=== PATIENT | female | born 1940 | race Caucasian/White ===

== ENCOUNTER 2021-05-19 20:30 | Inpatient (IN) ==
[2021-05-19] MEDS ORDERED: methylPREDNISolone 125 MG/2 ML VIAL IVP ONE (20:40)
[2021-05-19] MEDS ORDERED: Ipratropium/Albuterol Neb 3 ML IH ONE (20:40)
[2021-05-19 21:29] LABS: Basophils # 0.1 K/mcL (0.0-0.2); Basophils % 0.5 %; Eosinophils # 0.4 K/mcL (0.0-0.6); Eosinophils % 3.3 %; Hematocrit 33.8 % (35.3-44.9); Hemoglobin 11.4 g/dL (11.5-15.4); Immature Granulocytes % 1.1 % (0-4); Lymphocytes # 2.5 K/mcL (0.6-4.6); Lymphocytes % 20.4 %; Mean Corpuscular HGB Conc 33.7 g/dL (31.6-35.5); Mean Corpuscular Hemoglobin 29.5 pg (28.0-33.3); Mean Corpuscular Volume 87.6 fL (83.0-100.0); Mean Platelet Volume 10.7 fL (9.4-12.4); Monocytes # 1.1 K/mcL (0.0-1.3); Monocytes % 8.5 %; Neutrophils # 8.2 K/mcL (1.6-8.9); Platelet Count 312 K/mcL (140-400); Red Blood Count 3.86 M/mcL (3.82-4.97); Red Cell Distribution Width 14.1 % (11.5-14.5); Segmented Neutrophils % 66.2 %; White Blood Count 12.4 K/mcL (4.3-11.1)
[2021-05-19 21:37] LABS: INR 1.5; Prothrombin Time 16.8 Seconds (9.4-12.1)
[2021-05-19 21:39] LABS: Activated Partial Thrombo Time 36.6 Seconds (26.0-36.0)
[2021-05-19 21:41] LABS: Bilirubin,Urine Negative (Negative); Blood,Urine Large (Negative); Clarity,Urine Clear (Clear); Color,Urine Light-Yellow (Yellow); Glucose,Urine (UA) Normal (Normal); Ketones,Urine Negative (Negative); Leukocyte Esterase,Urine Negative (Negative); Mucus,Urine Few per lpf (None-Few); Nitrite,Urine Negative (Negative); Protein,Urine Negative (Neg-Trace); RBC,Urine TNTC per hpf (0-3); Specific Gravity,Urine 1.011 (1.010-1.025); Squamous Epithelial Cell,Urine Few per hpf (None-Few); Urobilinogen,Urine Normal (Normal)
[2021-05-19 21:52] LABS: BUN/Creatinine Ratio 15 (6-26); Blood Urea Nitrogen 10 mg/dL (8-23); Calcium 8.2 mg/dL (8.6-10.3); Carbon Dioxide 20 mEq/L (23-29); Chloride 84 mEq/L (98-107); Glucose 96 mg/dL (70-105); Osmolality,Calculated 237 (280-300); Potassium 3.8 mEq/L (3.5-5.1); Sodium 114 mEq/L (136-145); Troponin I < 0.03 ng/mL (< 0.04); eGFR For African Americans > 60 (> 60); eGFR For Non-African Americans > 60 (> 60)
[2021-05-19] MEDS ORDERED: Furosemide 20 MG/2 ML VIAL IVP ONE (22:16)
[2021-05-19] MEDS ORDERED: DilTIAZem 50 MG/50 ML IV.SOLN IVC SCH (22:45)
[2021-05-20 00:12] LABS: BUN/Creatinine Ratio 16 (6-26); Blood Urea Nitrogen 10 mg/dL (8-23); Calcium 8.3 mg/dL (8.6-10.3); Carbon Dioxide 19 mEq/L (23-29); Chloride 86 mEq/L (98-107); Glucose 105 mg/dL (70-105); Osmolality,Calculated 239 (280-300); Potassium 3.7 mEq/L (3.5-5.1); Sodium 115 mEq/L (136-145); eGFR For African Americans > 60 (> 60); eGFR For Non-African Americans > 60 (> 60)
[2021-05-20] MEDS ORDERED: Naloxone 0.4 MG/ML INJ IVP PRN (00:32)
[2021-05-20] MEDS ORDERED: Amiodarone Premix 360 MG/200 ML BAG IVC ONE (00:34)
[2021-05-20] MEDS ORDERED: Amiodarone Premix 150 MG/100 ML BAG IVPB ONE (00:34)
[2021-05-20] MEDS ORDERED: Perflutren Lipid Microsphere 1.3 ML in 0.9 % Sodium Chloride 8.7 ML IVP PRN (00:47)
[2021-05-20] MEDS: Apixaban 5 MG TABLET PO SCH ×3 (01:51→20:13)
[2021-05-20 03:53] LABS: Basophils % 0.3 %; Eosinophils # 0.1 K/mcL (0.0-0.6); Eosinophils % 0.4 %; Hematocrit 33.8 % (35.3-44.9); Hemoglobin 11.9 g/dL (11.5-15.4); Immature Granulocytes % 1.4 % (0-4); Lymphocytes # 1.3 K/mcL (0.6-4.6); Lymphocytes % 11.4 %; Mean Corpuscular HGB Conc 35.2 g/dL (31.6-35.5); Mean Corpuscular Hemoglobin 30.1 pg (28.0-33.3); Mean Corpuscular Volume 85.6 fL (83.0-100.0); Mean Platelet Volume 11.3 fL (9.4-12.4); Monocytes # 0.2 K/mcL (0.0-1.3); Neutrophils # 9.7 K/mcL (1.6-8.9); Platelet Count 287 K/mcL (140-400); Red Blood Count 3.95 M/mcL (3.82-4.97); Red Cell Distribution Width 13.9 % (11.5-14.5); Segmented Neutrophils % 84.5 %; White Blood Count 11.5 K/mcL (4.3-11.1)
[2021-05-20 04:00] LABS: INR 1.5; Prothrombin Time 16.8 Seconds (9.4-12.1)
[2021-05-20] MEDS ORDERED: Albumin 25% 25gram/100mL 25 GM/100 ML IV.SOLN IVPB ONE ×2 (04:00→13:06)
[2021-05-20 04:18] LABS: Adenovirus Not Detected (Not Detect); Bordetella Pertussis Not Detected (Not Detect); Chlamydophila pneumoniae Not Detected (Not Detect); Coronavirus 229E Not Detected (Not Detect); Coronavirus HKU1 Not Detected (Not Detect); Coronavirus NL63 Not Detected (Not Detect); Coronavirus OC43 Not Detected (Not Detect); Human Metapneumovirus Not Detected (Not Detect); Human Rhinovirus/Enterovirus Not Detected (Not Detect); Influenza A Subtype 2009 H1 Not Detected (Not Detect); Influenza B Not Detected (Not Detect); Mycoplasma pneumoniae Not Detected (Not Detect); Parainfluenza Virus 1 Not Detected (Not Detect); Parainfluenza Virus 2 Not Detected (Not Detect); Parainfluenza Virus 3 Not Detected (Not Detect); Parainfluenza Virus 4 Not Detected (Not Detect); Respiratory Syncytial Virus Not Detected (Not Detect); SARS-CoV-2 Not Detected (Not Detect)
[2021-05-20 04:19] LABS: Alanine Aminotransferase 68 Units/L (7-52); Albumin 3.8 g/dL (3.5-5.7); Albumin/Globulin Ratio 1.5 (1.1-2.2); Alkaline Phosphatase 127 Units/L (34-104); Aspartate Amino Transferase 46 Units/L (13-39); BUN/Creatinine Ratio 15 (6-26); Bilirubin,Total 0.7 mg/dL (0.3-1.0); Blood Urea Nitrogen 10 mg/dL (8-23); Calcium 8.1 mg/dL (8.6-10.3); Carbon Dioxide 18 mEq/L (23-29); Chloride 86 mEq/L (98-107); Globulin 2.5 g/dL (2.4-3.5); Glucose 131 mg/dL (70-105); Magnesium 1.7 mg/dL (1.6-2.6); Osmolality,Calculated 243 (280-300); Phosphorous 2.9 mg/dL (2.7-4.5); Potassium 3.8 mEq/L (3.5-5.1); Sodium 116 mEq/L (136-145); Total Protein 6.3 g/dL (6.4-8.9); eGFR For African Americans > 60 (> 60); eGFR For Non-African Americans > 60 (> 60)
[2021-05-20 04:30] LABS: Thyroid Stimulating Hormone 7.832 mcIU/mL (0.340-5.600)
[2021-05-20] MEDS ORDERED: Furosemide 20 MG/2 ML VIAL IVP ONE ×2 (05:30→10:24)
[2021-05-20] MEDS: Amiodarone Premix 360 MG/200 ML BAG IVC SCH (08:22)
[2021-05-20] MEDS ORDERED: Ipratropium/Albuterol Neb 3 ML IH ONE (10:23)
[2021-05-20] MEDS ORDERED: DilTIAZem CD (24hr) 120 MG CAP.ER.24H PO SCH (12:15)
[2021-05-20 13:16] LABS: BUN/Creatinine Ratio 14 (6-26); Blood Urea Nitrogen 12 mg/dL (8-23); Calcium 8.4 mg/dL (8.6-10.3); Carbon Dioxide 23 mEq/L (23-29); Chloride 87 mEq/L (98-107); Glucose 159 mg/dL (70-105); Osmolality,Calculated 253 (280-300); Potassium 3.7 mEq/L (3.5-5.1); Sodium 120 mEq/L (136-145); eGFR For African Americans > 60 (> 60); eGFR For Non-African Americans > 60 (> 60)
[2021-05-20] MEDS ORDERED: Furosemide 20 MG/2 ML VIAL IVP SCH (14:00)
[2021-05-20] MEDS ORDERED: *HR* Digoxin 0.5 MG/2 ML AMPUL IVP ONE (14:05)
[2021-05-20] MEDS: Furosemide 20 MG/2 ML VIAL IVP SCH (18:47)
[2021-05-20 19:04] LABS: Calcium 8.5 mg/dL (8.6-10.3); Potassium 3.8 mEq/L (3.5-5.1)
[2021-05-20] MEDS: Melatonin 3 MG TABLET PO PRN (21:21)
[2021-05-21 03:16] LABS: Calcium 8.4 mg/dL (8.6-10.3); Potassium 3.7 mEq/L (3.5-5.1)
[2021-05-21] MEDS: Amiodarone Premix 360 MG/200 ML BAG IVC SCH ×2 (04:34→15:01)
[2021-05-21 08:22] LABS: BUN/Creatinine Ratio 18 (6-26); Blood Urea Nitrogen 17 mg/dL (8-23); Calcium 8.4 mg/dL (8.6-10.3); Carbon Dioxide 23 mEq/L (23-29); Chloride 91 mEq/L (98-107); Glucose 103 mg/dL (70-105); Osmolality,Calculated 262 (280-300); Potassium 3.6 mEq/L (3.5-5.1); Sodium 125 mEq/L (136-145); eGFR For African Americans > 60 (> 60); eGFR For Non-African Americans 57 (> 60)
[2021-05-21] MEDS: Furosemide 20 MG/2 ML VIAL IVP SCH ×2 (08:33→15:03)
[2021-05-21] MEDS: Apixaban 5 MG TABLET PO SCH ×2 (08:33→20:14)
[2021-05-21] MEDS ORDERED: methylPREDNISolone 125 MG/2 ML VIAL IVP ONE (08:46)
[2021-05-21] MEDS ORDERED: Furosemide 40 MG/4 ML VIAL IVP SCH (09:00)
[2021-05-21 09:05] LABS: Magnesium 2.1 mg/dL (1.6-2.6)
[2021-05-21 14:01] LABS: BUN/Creatinine Ratio 18 (6-26); Blood Urea Nitrogen 18 mg/dL (8-23); Calcium 8.3 mg/dL (8.6-10.3); Carbon Dioxide 23 mEq/L (23-29); Chloride 92 mEq/L (98-107); Glucose 117 mg/dL (70-105); Osmolality,Calculated 263 (280-300); Potassium 4.4 mEq/L (3.5-5.1); Sodium 125 mEq/L (136-145); eGFR For African Americans > 60 (> 60); eGFR For Non-African Americans 54 (> 60)
[2021-05-21 19:00] LABS: BUN/Creatinine Ratio 20 (6-26); Blood Urea Nitrogen 20 mg/dL (8-23); Calcium 8.8 mg/dL (8.6-10.3); Carbon Dioxide 20 mEq/L (23-29); Chloride 95 mEq/L (98-107); Glucose 168 mg/dL (70-105); Osmolality,Calculated 270 (280-300); Potassium 4.9 mEq/L (3.5-5.1); Sodium 127 mEq/L (136-145); eGFR For African Americans > 60 (> 60); eGFR For Non-African Americans 54 (> 60)
[2021-05-22] MEDS: Amiodarone Premix 360 MG/200 ML BAG IVC SCH ×2 (03:20→15:41)
[2021-05-22] MEDS: Apixaban 5 MG TABLET PO SCH ×2 (08:00→20:31)
[2021-05-22] MEDS: predniSONE 20 MG TABLET PO SCH (08:00)
[2021-05-22] MEDS: Furosemide 20 MG/2 ML VIAL IVP SCH ×2 (08:04→16:41)
[2021-05-22] MEDS ORDERED: *HR* Metoprolol 5 MG/5 ML VIAL IVP ONE (13:39)
[2021-05-22] MEDS ORDERED: polyethylene glycoL 3350 17 GM POWD.PACK PO PRN (16:00)
[2021-05-23] MEDS: Amiodarone Premix 360 MG/200 ML BAG IVC SCH (03:27)
[2021-05-23] MEDS: Furosemide 20 MG/2 ML VIAL IVP SCH (09:02)
[2021-05-23] MEDS: predniSONE 20 MG TABLET PO SCH (09:03)
[2021-05-23] MEDS: Apixaban 5 MG TABLET PO SCH ×2 (09:03→20:08)
[2021-05-23 09:30] LABS: BUN/Creatinine Ratio 23 (6-26); Blood Urea Nitrogen 21 mg/dL (8-23); Calcium 8.8 mg/dL (8.6-10.3); Carbon Dioxide 26 mEq/L (23-29); Chloride 94 mEq/L (98-107); Glucose 98 mg/dL (70-105); Osmolality,Calculated 275 (280-300); Sodium 131 mEq/L (136-145); eGFR For African Americans > 60 (> 60); eGFR For Non-African Americans 58 (> 60)
[2021-05-23] MEDS: Furosemide 20 MG TABLET PO SCH (17:37)
[2021-05-23] MEDS: *HR* Amiodarone 200 MG TABLET PO SCH (20:08)
[2021-05-23] MEDS: ALPRAZolam 0.5 MG TABLET PO SCH (20:36)
[2021-05-24 03:19] LABS: BUN/Creatinine Ratio 27 (6-26); Blood Urea Nitrogen 24 mg/dL (8-23); Calcium 8.9 mg/dL (8.6-10.3); Carbon Dioxide 26 mEq/L (23-29); Chloride 96 mEq/L (98-107); Glucose 109 mg/dL (70-105); Osmolality,Calculated 279 (280-300); Potassium 4.2 mEq/L (3.5-5.1); Sodium 132 mEq/L (136-145); eGFR For African Americans > 60 (> 60); eGFR For Non-African Americans > 60 (> 60)
[2021-05-24] MEDS: predniSONE 20 MG TABLET PO SCH (09:34)
[2021-05-24] MEDS: Apixaban 5 MG TABLET PO SCH ×2 (09:35→20:43)
[2021-05-24] MEDS: *HR* Amiodarone 200 MG TABLET PO SCH (09:36)
[2021-05-24] MEDS: Furosemide 20 MG TABLET PO SCH ×2 (09:42→16:31)
[2021-05-24] MEDS ORDERED: *HR* Digoxin 0.5 MG/2 ML AMPUL IVP ONE (09:46)
[2021-05-24] MEDS: ALPRAZolam 0.5 MG TABLET PO SCH (20:43)
[2021-05-24] MEDS: Ketoconazole 2% CRM 15 GM TUBE TP SCH (21:00)
[2021-05-25 03:39] LABS: BUN/Creatinine Ratio 29 (6-26); Blood Urea Nitrogen 27 mg/dL (8-23); Calcium 8.7 mg/dL (8.6-10.3); Carbon Dioxide 26 mEq/L (23-29); Chloride 97 mEq/L (98-107); Glucose 102 mg/dL (70-105); Osmolality,Calculated 281 (280-300); Potassium 3.9 mEq/L (3.5-5.1); Sodium 133 mEq/L (136-145); eGFR For African Americans > 60 (> 60); eGFR For Non-African Americans 58 (> 60)
[2021-05-25] MEDS: Furosemide 20 MG TABLET PO SCH ×2 (08:44→17:48)
[2021-05-25] MEDS: *HR* Amiodarone 200 MG TABLET PO SCH (08:44)
[2021-05-25] MEDS: predniSONE 20 MG TABLET PO SCH (08:45)
[2021-05-25] MEDS: Apixaban 5 MG TABLET PO SCH ×2 (08:45→20:16)
[2021-05-25] MEDS ORDERED: *HR* Digoxin 0.125 MG TABLET PO SCH (09:00)
[2021-05-25] MEDS: Ketoconazole 2% CRM 15 GM TUBE TP SCH ×2 (12:26→20:16)
[2021-05-25] MEDS ORDERED: *HR* Digoxin 0.5 MG/2 ML AMPUL IVP ONE (17:00)
[2021-05-25] MEDS ORDERED: *HR* Metoprolol 5 MG/5 ML VIAL IVP ONE (18:57)
[2021-05-25] MEDS: ALPRAZolam 0.5 MG TABLET PO SCH (20:16)
[2021-05-25] MEDS: Melatonin 3 MG TABLET PO PRN (20:16)
[2021-05-26 03:32] LABS: BUN/Creatinine Ratio 27 (6-26); Blood Urea Nitrogen 27 mg/dL (8-23); Calcium 8.5 mg/dL (8.6-10.3); Carbon Dioxide 26 mEq/L (23-29); Chloride 101 mEq/L (98-107); Glucose 95 mg/dL (70-105); Osmolality,Calculated 283 (280-300); Potassium 4.2 mEq/L (3.5-5.1); Sodium 134 mEq/L (136-145); eGFR For African Americans > 60 (> 60); eGFR For Non-African Americans 54 (> 60)
[2021-05-26] MEDS ORDERED: *HR* Digoxin 0.5 MG/2 ML AMPUL IVP ONE ×2 (08:00→09:51)
[2021-05-26] MEDS: Apixaban 5 MG TABLET PO SCH ×2 (08:34→20:35)
[2021-05-26] MEDS: predniSONE 20 MG TABLET PO SCH (08:34)
[2021-05-26] MEDS: Furosemide 20 MG TABLET PO SCH ×2 (08:34→17:51)
[2021-05-26] MEDS: *HR* Amiodarone 200 MG TABLET PO SCH (08:35)
[2021-05-26] MEDS: Ketoconazole 2% CRM 15 GM TUBE TP SCH ×2 (08:35→20:35)
[2021-05-26] MEDS ORDERED: *HR* Digoxin 0.5 MG/2 ML AMPUL IVP SCH (15:00)
[2021-05-26] MEDS: ALPRAZolam 0.5 MG TABLET PO SCH (20:35)
[2021-05-27 02:47] LABS: Calcium 8.6 mg/dL (8.6-10.3); Potassium 4.2 mEq/L (3.5-5.1)
[2021-05-27 05:49] LABS: Basophils # 0.1 K/mcL (0.0-0.2); Basophils % 0.3 %; Eosinophils # 0.2 K/mcL (0.0-0.6); Hematocrit 36.6 % (35.3-44.9); Hemoglobin 12.1 g/dL (11.5-15.4); Immature Granulocytes % 2.2 % (0-4); Lymphocytes # 4.3 K/mcL (0.6-4.6); Lymphocytes % 21.1 %; Mean Corpuscular HGB Conc 33.1 g/dL (31.6-35.5); Mean Corpuscular Hemoglobin 30.6 pg (28.0-33.3); Mean Corpuscular Volume 92.4 fL (83.0-100.0); Mean Platelet Volume 10.1 fL (9.4-12.4); Monocytes # 1.5 K/mcL (0.0-1.3); Monocytes % 7.5 %; Neutrophils # 13.7 K/mcL (1.6-8.9); Platelet Count 324 K/mcL (140-400); Red Blood Count 3.96 M/mcL (3.82-4.97); Red Cell Distribution Width 15.5 % (11.5-14.5); Segmented Neutrophils % 67.9 %; White Blood Count 20.2 K/mcL (4.3-11.1)
[2021-05-27] MEDS: *HR* Amiodarone 200 MG TABLET PO SCH (08:44)
[2021-05-27] MEDS: *HR* Digoxin 0.125 MG TABLET PO SCH (08:44)
[2021-05-27] MEDS: Apixaban 5 MG TABLET PO SCH ×2 (08:44→21:07)
[2021-05-27] MEDS: Furosemide 20 MG TABLET PO SCH (08:44)
[2021-05-27] MEDS: Ketoconazole 2% CRM 15 GM TUBE TP SCH ×2 (11:36→21:09)
[2021-05-27] MEDS ORDERED: Furosemide 20 MG/2 ML VIAL IVP ONE (12:14)
[2021-05-27] MEDS: Furosemide 20 MG/2 ML VIAL IVP SCH ×2 (13:06→17:24)
[2021-05-27] MEDS: ALPRAZolam 0.5 MG TABLET PO SCH (21:07)
[2021-05-27] MEDS: Melatonin 3 MG TABLET PO PRN (21:07)
[2021-05-28 04:38] LABS: Basophils # 0.1 K/mcL (0.0-0.2); Basophils % 0.4 %; Eosinophils # 0.5 K/mcL (0.0-0.6); Eosinophils % 2.7 %; Hematocrit 39.4 % (35.3-44.9); Hemoglobin 13.1 g/dL (11.5-15.4); Immature Granulocytes % 1.6 % (0-4); Lymphocytes # 4.1 K/mcL (0.6-4.6); Lymphocytes % 22.8 %; Mean Corpuscular HGB Conc 33.2 g/dL (31.6-35.5); Mean Corpuscular Hemoglobin 30.5 pg (28.0-33.3); Mean Corpuscular Volume 91.6 fL (83.0-100.0); Mean Platelet Volume 10.1 fL (9.4-12.4); Monocytes # 1.5 K/mcL (0.0-1.3); Monocytes % 8.4 %; Neutrophils # 11.5 K/mcL (1.6-8.9); Platelet Count 349 K/mcL (140-400); Red Cell Distribution Width 15.7 % (11.5-14.5); Segmented Neutrophils % 64.1 %; White Blood Count 17.9 K/mcL (4.3-11.1)
[2021-05-28 04:46] LABS: Calcium 8.7 mg/dL (8.6-10.3); Potassium 3.9 mEq/L (3.5-5.1)
[2021-05-28] MEDS: Furosemide 20 MG/2 ML VIAL IVP SCH ×2 (07:36→16:25)
[2021-05-28] MEDS: *HR* Digoxin 0.125 MG TABLET PO SCH (07:37)
[2021-05-28] MEDS: Ketoconazole 2% CRM 15 GM TUBE TP SCH ×2 (07:37→21:27)
[2021-05-28] MEDS: *HR* Amiodarone 200 MG TABLET PO SCH (07:37)
[2021-05-28] MEDS: Apixaban 5 MG TABLET PO SCH ×2 (07:37→21:26)
[2021-05-28] MEDS: DilTIAZem CD (24hr) 120 MG CAP.ER.24H PO SCH (09:17)
[2021-05-28] MEDS: ALPRAZolam 0.5 MG TABLET PO SCH (21:26)
[2021-05-29 07:49] LABS: Basophils # 0.1 K/mcL (0.0-0.2); Basophils % 0.5 %; Eosinophils # 0.4 K/mcL (0.0-0.6); Eosinophils % 3.2 %; Hematocrit 41.8 % (35.3-44.9); Hemoglobin 13.5 g/dL (11.5-15.4); Immature Granulocytes % 1.5 % (0-4); Lymphocytes # 3.2 K/mcL (0.6-4.6); Lymphocytes % 23.2 %; Mean Corpuscular HGB Conc 32.3 g/dL (31.6-35.5); Mean Corpuscular Hemoglobin 29.7 pg (28.0-33.3); Mean Corpuscular Volume 91.9 fL (83.0-100.0); Mean Platelet Volume 9.6 fL (9.4-12.4); Monocytes # 1.3 K/mcL (0.0-1.3); Monocytes % 9.1 %; Neutrophils # 8.7 K/mcL (1.6-8.9); Platelet Count 347 K/mcL (140-400); Red Blood Count 4.55 M/mcL (3.82-4.97); Red Cell Distribution Width 15.6 % (11.5-14.5); Segmented Neutrophils % 62.5 %; White Blood Count 13.9 K/mcL (4.3-11.1)
[2021-05-29 08:01] LABS: BUN/Creatinine Ratio 26 (6-26); Blood Urea Nitrogen 25 mg/dL (8-23); Calcium 8.6 mg/dL (8.6-10.3); Carbon Dioxide 31 mEq/L (23-29); Chloride 102 mEq/L (98-107); Glucose 81 mg/dL (70-105); Osmolality,Calculated 291 (280-300); Potassium 4.1 mEq/L (3.5-5.1); Sodium 139 mEq/L (136-145); eGFR For African Americans > 60 (> 60); eGFR For Non-African Americans 55 (> 60)
[2021-05-29] MEDS: *HR* Amiodarone 200 MG TABLET PO SCH (09:25)
[2021-05-29] MEDS: Torsemide 20 MG TABLET PO SCH (09:25)
[2021-05-29] MEDS: DilTIAZem CD (24hr) 120 MG CAP.ER.24H PO SCH (09:25)
[2021-05-29] MEDS: *HR* Digoxin 0.125 MG TABLET PO SCH (09:25)
[2021-05-29] MEDS: Apixaban 5 MG TABLET PO SCH ×2 (09:25→20:53)
[2021-05-29] MEDS: Ketoconazole 2% CRM 15 GM TUBE TP SCH ×2 (09:26→20:54)
[2021-05-29] MEDS ORDERED: *HR* FentaNYL (PF) 100 MCG/2 ML VIAL IVP PRN (10:56)
[2021-05-29] MEDS ORDERED: *HR* Midazolam HCl 5 MG/5 ML VIAL IVP PRN (10:57)
[2021-05-29] MEDS ORDERED: 0.9 % Sodium Chloride 500 ML IVC ONE (10:57)
[2021-05-29] MEDS: ALPRAZolam 0.5 MG TABLET PO SCH (20:53)
[2021-05-30] MEDS: Torsemide 20 MG TABLET PO SCH (09:58)
[2021-05-30] MEDS: Apixaban 5 MG TABLET PO SCH ×2 (09:59→20:18)
[2021-05-30] MEDS: *HR* Amiodarone 200 MG TABLET PO SCH (10:00)
[2021-05-30] MEDS: DilTIAZem CD (24hr) 120 MG CAP.ER.24H PO SCH (10:00)
[2021-05-30] MEDS: Ketoconazole 2% CRM 15 GM TUBE TP SCH ×2 (10:09→21:00)
[2021-05-30] MEDS: ALPRAZolam 0.5 MG TABLET PO SCH (20:17)
[2021-05-30] MEDS: Melatonin 3 MG TABLET PO PRN (20:18)
[2021-05-31] MEDS: Torsemide 20 MG TABLET PO SCH (08:15)
[2021-05-31] MEDS: *HR* Amiodarone 200 MG TABLET PO SCH (08:15)
[2021-05-31] MEDS: Apixaban 5 MG TABLET PO SCH (08:16)
[2021-05-31] MEDS: DilTIAZem CD (24hr) 120 MG CAP.ER.24H PO SCH (09:28)
[2021-05-31] MEDS: Ketoconazole 2% CRM 15 GM TUBE TP SCH (09:30)
[2021-05-31 13:22] LABS: Basophils # 0.1 K/mcL (0.0-0.2); Basophils % 0.5 %; Eosinophils # 0.4 K/mcL (0.0-0.6); Eosinophils % 2.9 %; Hematocrit 44.9 % (35.3-44.9); Hemoglobin 14.2 g/dL (11.5-15.4); Immature Granulocytes % 0.8 % (0-4); Lymphocytes # 2.6 K/mcL (0.6-4.6); Lymphocytes % 18.3 %; Mean Corpuscular HGB Conc 31.6 g/dL (31.6-35.5); Mean Corpuscular Hemoglobin 29.6 pg (28.0-33.3); Mean Corpuscular Volume 93.5 fL (83.0-100.0); Mean Platelet Volume 9.6 fL (9.4-12.4); Monocytes % 7.2 %; Neutrophils # 10.1 K/mcL (1.6-8.9); Platelet Count 337 K/mcL (140-400); Red Cell Distribution Width 15.7 % (11.5-14.5); Segmented Neutrophils % 70.3 %; White Blood Count 14.3 K/mcL (4.3-11.1)
[2021-05-31 13:45] LABS: Potassium 4.1 mEq/L (3.5-5.1)
[2021-05-31 14:30] VITALS: BP 104/68; PULSE 51; TEMP 97.6; O2SAT 93
== END 2021-05-31 17:15 | disposition home or self-care (01) | DRG 291 ==
LOC: 3NENU 20:30 → EMEROOARM 20:30 → SUATTDRO 05-20 00:50 → 3NENU 05-20 01:29
PROVIDERS: ADMIT Internal Medicine; ATTEND Student in an Organized Health Care Education/Training Program